=== PATIENT | female | born 1990 | race Caucasian/White ===

== ENCOUNTER 2022-07-09 15:45 | Inpatient (IN) | payer MEDICAID, OTHER ==
--- NOTE | 2022-07-09 12:24 | P.HPOB ---
History of Present Illness H&P Date: 07/09/22 Chief Complaint: Induction of labor secondary to gestational diabetes This patient is a pleasant 32-year-old 3 para 2 female estimated date of confinement 07/16/2022 estimated gestational age 39 and one sevenths weeks who presents to labor and delivery for two-stage induction of labor secondary to gestational diabetes at term. Patient's care is such that she transferred to ut at [address] Dobbs. Patient had not had any glucose testing done and we did do a due Glucola which was abnormal and her 3 hour GTT was abnormal as well. Patient subsequently has been seeing Dr. Borja and has had regular testing. Patient now presents for delivery. Review of Systems Genitourinary: Reports Menstruation: Reports amenorrhea Past Medical History Past Medical History: No Reported History Additional Past Medical History / Comment(s): Patient's had 2 previous vaginal deliveries 7 lbs. 14 oz. and 9 lbs. 5 oz. Past Surgical History: Adenoidectomy Past Anesthesia/Blood Transfusion Reactions: No Reported Reaction Past Psychological History: Anxiety Smoking Status: Never smoker Past Alcohol Use History: None Reported Past Drug Use History: None Reported Medications and Allergies Allergies Allergy/AdvReac Type Severity Reaction Status Date / Time No Known Allergies Allergy Verified 07/09/22 12:22 Exam - OBG Physical Exam Abdomen: bowel sounds normal, no diffuse tenderness, no bruit present, no guarding noted, no hepatomegaly, no splenomegaly, no mass Vulva: both: normal Vagina: normal moisture, no discharge Cervix: no lesion (Cervix at the office was closed.), no discharge Uterus: enlarged (Fundal height is 38 cm) Results blood work shows she is A positive, rubella immune, RPR nonreactive, h epatitis B negative, HIV was nonreactive, group B strep was positive, Glucola was 139 with an abnormal 3 hour gtt. Most recent ultrasound showed baby 5 lbs. 13 oz. which is the 50th percentile at 35 weeks Assessment and Plan Assessment: This is a 32-year-old 3 para 2 female 39 and one sevenths weeks gestation with gestational diabetes and unfavorable cervix. Patient also has a positive group B strep culture. Plan is two-stage induction of labor, antibiotic prophylaxis, and anticipate vaginal delivery. (1) 39 weeks gestation of Status: Acute Code(s): Z3A.39 - 39 WEEKS GESTATION OF SNOMED Code(s): 07865152 (2) Gestational diabetes Status: Acute Code(s): O24.419 - GESTATIONAL DIABETES MELLITUS IN , UNSP CONTROL SNOMED Code(s): 94916475 (3) Encounter for induction of labor Status: Acute Code(s): Z34.90 - ENCNTR FOR SUPRVSN OF NORMAL , UNSP, UNSP TRIMESTER SNOMED Code(s): 723385231 (4) Group B streptococcal carriage complicating Status: Acute Code(s): O99.820 - STREPTOCOCCUS B CARRIER STATE COMPLICATING SNOMED Code(s): 526179062301974
[2022-07-09] MEDS ORDERED: BUTORPHANOL 1 MG/ML 1 ML VIAL IV PRN (15:56)
[2022-07-09] MEDS ORDERED: DINOPROSTONE 10 MG INSERT.ER VAGINAL ONE (16:00)
[2022-07-10] MEDS ORDERED: CARBOPROST TROMETHAMINE 250 MCG/ML 1 ML AMP IM PRN (04:47)
[2022-07-10] MEDS ORDERED: METHYLERGONOVINE 0.2 MG/ML 1 ML AMP IM PRN (04:47)
[2022-07-10] MEDS ORDERED: OXYTOCIN 30 UNITS/500 ML NS 30 UNIT in SALINE 1 500ML.BAG IV SCH ×2 (04:47→17:41)
[2022-07-10] MEDS ORDERED: OXYTOCIN 10 UNIT/ML 1 ML VIAL IM PRN (04:47)
[2022-07-10] MEDS ORDERED: LIDOCAINE 0.5% (PF) 5 MG/ML (50 ML SDV) SQ PRN (04:47)
[2022-07-10] MEDS ORDERED: TERBUTALINE 1 MG/ML VIAL SQ PRN (04:47)
[2022-07-10] MEDS ORDERED: AMPICILLIN 2,000 MG in SODIUM CHLORIDE 0.9% 100 ML IVPB ONE (05:00)
[2022-07-10] MEDS: LACTATED RINGERS 1,000 ML IV SCH ×3 (05:41→15:01)
[2022-07-10 05:52] LABS: Glucose,Whole Blood 93 mg/dL (70-110)
[2022-07-10 06:01] LABS: Basophils % (A) 0 %; Eosinophils # (A) 0.1 k/uL (0-0.7); Eosinophils % (A) 1 %; HCT 41.5 % (34.0-46.0); HGB 13.1 gm/dL (11.4-16.0); Lymphocytes % (A) 25 %; MCH 26.9 pg (25.0-35.0); MCHC 31.6 g/dL (31.0-37.0); MCV 85.2 fL (80.0-100.0); Mean Platelet Volume 8.6; Monocytes # (A) 0.4 k/uL (0-1.0); Monocytes % (A) 5 %; Neutrophils # (A) 5.3 k/uL (1.3-7.7); Neutrophils % (A) 67 %; Platelet Count 172 k/uL (150-450); RBC 4.88 m/uL (3.80-5.40); RDW 13.7 % (11.5-15.5); WBC 7.9 k/uL (3.8-10.6)
[2022-07-10] MEDS: AMPICILLIN 1,000 MG in SODIUM CHLORIDE 0.9% 50 ML IVPB SCH ×2 (09:00→13:19)
[2022-07-10] MEDS ORDERED: fentaNYL (PF) 50 MCG/ML 5 ML AMP ONE (13:49)
[2022-07-10] MEDS ORDERED: ROPIVACAINE 5 MG/ML 20 ML AMPULE ONE (13:49)
[2022-07-10] MEDS ORDERED: SODIUM CHLORIDE 0.9% 100 ML BAG ONE (13:49)
[2022-07-10] MEDS ORDERED: bisacodyL 10 MG SUPP RECTAL PRN (17:41)
[2022-07-10] MEDS ORDERED: diphenhydrAMINE 50 MG/ML 1 ML VIAL IVP PRN (17:41)
[2022-07-10] MEDS ORDERED: LANOLIN CREAM 5 GM TUBE TOPICAL PRN (17:41)
[2022-07-10] MEDS ORDERED: diphenhydrAMINE 25 MG CAP PO PRN (17:41)
[2022-07-10] MEDS ORDERED: SIMETHICONE 80 MG CHEWABLE PO PRN (17:41)
[2022-07-10] MEDS ORDERED: BENZOCAINE/MENTHOL SPRAY 1 GM/SPRAY AEROSOL TOPICAL PRN (17:41)
[2022-07-10] MEDS ORDERED: HYDROCORTISONE 2.5% RECTAL CREAM 30 GM TUBE RECTAL PRN (17:41)
[2022-07-10] MEDS ORDERED: ACETAMINOPHEN TAB 325 MG TAB PO PRN (17:41)
[2022-07-10] MEDS ORDERED: ZOLPIDEM 5 MG TAB PO PRN (17:41)
--- NOTE | 2022-07-10 18:04 | P.PROBDLV ---
Vaginal Delivery Note - . Vaginal Delivery Note: Normal vaginal delivery viable male infant Apgars 9 and 9 delivery time is 1729 hrs. Please see dictated H&P for intimate details of this patient's admission. In brief summary is a pleasant 32-year-old 3 para 2 female 39 and one sevenths weeks gestation admitted to labor and delivery for two-stage induction of labor secondary to gestational diabetes. On admission patient has a Cervidil placed.'s morning she is 1-2 cm dilated and thick but has artificial rupture membranes for clear fluid. Labor progresses slowly but then she gets an epidural progresses much quicker. Patient gets to complete and with 1 effort she delivers infant head over the intact perineum in a controlled fashion. Mouth and nares are bulb suctioned. She continues to push gently and delivers the rest of this 's body without effort. Does have a nuchal cord 1. Is a viable male Apgars are 9 and 9 delivery time was 1729 hrs. After delivery of the is laid in the mother's abdomen. After the cord is then pulsating is doubly clamped and then cut. Appears to be trivascular. Placenta is then spontaneously delivered intact. No laceration and no repairs required. Estimated blood loss is 150 mL. Mother and infant are stable delivery room.
[2022-07-10] MEDS: SENNOSIDES-DOCUSATE SODIUM 1 EACH TAB PO SCH ×2 (18:25→20:04)
[2022-07-10] MEDS: IBUPROFEN 600 MG TAB PO PRN (20:04)
[2022-07-11 07:03] LABS: Basophils % (A) 0 %; Eosinophils # (A) 0.1 k/uL (0-0.7); Eosinophils % (A) 1 %; HCT 37.8 % (34.0-46.0); HGB 11.9 gm/dL (11.4-16.0); Lymphocytes # (A) 1.6 k/uL (1.0-4.8); Lymphocytes % (A) 18 %; MCH 27.3 pg (25.0-35.0); MCHC 31.5 g/dL (31.0-37.0); MCV 86.4 fL (80.0-100.0); Mean Platelet Volume 8.7; Monocytes # (A) 0.5 k/uL (0-1.0); Monocytes % (A) 6 %; Neutrophils # (A) 6.4 k/uL (1.3-7.7); Neutrophils % (A) 73 %; Platelet Count 150 k/uL (150-450); RBC 4.37 m/uL (3.80-5.40); RDW 13.9 % (11.5-15.5); WBC 8.7 k/uL (3.8-10.6)
--- NOTE | 2022-07-11 07:16 | P.PNOBGVD ---
Subjective - Subjective Patient reports: Reports appetite normal, Reports voiding normally, Reports pain well controlled, Reports ambulating normally : doing well Objective - Latest Vital Signs Latest vital signs: Vital Signs Temp Pulse Resp BP Pulse Ox 07/11/22 04:00 98.3 F 97 17 100/58 96 07/10/22 23:44 98.1 F 103 H 19 94/56 07/10/22 23:43 99 16 07/10/22 19:44 97.8 F 99 16 138/63 07/10/22 19:14 98.0 F 104 H 17 149/62 07/10/22 18:44 95 16 112/60 07/10/22 18:29 97.6 F 103 H 16 112/67 97 07/10/22 18:14 114 H 16 125/66 07/10/22 17:59 103 H 16 123/62 07/10/22 17:44 98.4 F 114 H 16 131/72 Intake and Output 07/10/22 07/11/22 07/11/22 22:59 06:59 14:59 Intake Total 681.833 Output Total 725 300 Balance -43.167 -300 Intake: Intake, IV Titration 201.833 Amount Oxytocin 30 Units/500 ml 201.833 Ns 30 unit In Saline 1 500ml.bag @ Per Protocol IV .Q0M [facility] Rx#:[id number] Oral 480 Output: Urine 300 Estimated Blood Loss 300 Output, Quantitative 425 Blood Loss Other: # Voids 2 - Exam Lungs: bilateral: normal Chest: Normal S1, Normal S2 Extremities: Present: normal Abdomen: Present: normal appearance, soft Uterus: Present: normal, firm Assessment and Plan Assessment: day #1. Patient is resting without complaints and wishes to go home. Vital signs are stable she's afebrile. Uterus is firm nontender and she is having normal lochia. Impression this is a normal course. Plan is to continue routine care and discharge home later today. (1) 39 weeks gestation of Current Visit: No Status: Acute Code(s): Z3A.39 - 39 WEEKS GESTATION OF SNOMED Code(s): 47668786 (2) Gestational diabetes Current Visit: No Status: Acute Code(s): O24.419 - GESTATIONAL DIABETES MELLITUS IN , UNSP CONTROL SNOMED Code(s): 63925236 (3) Encounter for induction of labor Current Visit: No Status: Acute Code(s): Z34.90 - ENCNTR FOR SUPRVSN OF NORMAL , UNSP, UNSP TRIMESTER SNOMED Code(s): 152551997 (4) Group B streptococcal carriage complicating Current Visit: No Status: Acute Code(s): O99.820 - STREPTOCOCCUS B CARRIER STATE COMPLICATING SNOMED Code(s): 299443006503931
--- NOTE | 2022-07-11 07:21 | P.DS ---
Providers Date of admission: 07/09/22 15:45 Expected date of discharge: 07/11/22 Attending physician: Damien Mccain Primary care physician: Stated None - Discharge Diagnosis(es) (1) 39 weeks gestation of Current Visit: No Status: Acute (2) Gestational diabetes Current Visit: No Status: Acute (3) Encounter for induction of labor Current Visit: No Status: Acute (4) Group B streptococcal carriage complicating Current Visit: No Status: Acute Hospital Course: Please see dictated H&P for intimate details of this patient's admission. Brief summary this pleasant 32-year-old 3 para 2 female 39 weeks gestation admitted to labor and delivery for induction of labor secondary to gestational diabetes. Patient is admitted she is uncomplicated induction of labor was on have a vaginal delivery viable male infant. Please see dictated delivery note. day #1 patient is without complaints and wishes to go home. Conrad aden's felt be stable for discharge home follow up with me in 6 weeks. Procedures: Two-stage induction of labor and normal vaginal delivery Patient Condition at Discharge: Good Plan - Discharge Summary Discharge Rx Participant: Yes New Discharge Prescriptions: New Ibuprofen [Motrin] 600 mg PO Q6HR PRN #30 tab PRN Reason: Mild Pain (Scale 1 To 3) No Action Unf-Whyo-Niasy Acid [-U Capsule (formulary)] 1 cap PO DAILY Discharge Medication List Lbb-Hess-Xkcuc Acid [-U Capsule (formulary)] 1 cap PO DAILY 07/09/22 [History] Ibuprofen [Motrin] 600 mg PO Q6HR PRN #30 tab 07/11/22 [Rx] Follow up Appointment(s)/Referral(s): Damien Mccain MD [STAFF PHYSICIAN] - 08/28/22 9:30 am Patient Instructions/Handouts: Vaginal Delivery (DC) Activity/Diet/Wound Care/Special Instructions: No intercourse or anything per vagina for 6 weeks. Please call if any fever, chills, excessive vaginal bleeding, and/or abdominal pain. Discharge Disposition: HOME SELF-CARE
[2022-07-11] MEDS: IBUPROFEN 600 MG TAB PO PRN (08:36)
[2022-07-11] MEDS: SENNOSIDES-DOCUSATE SODIUM 1 EACH TAB PO SCH (08:37)
[2022-07-11] MEDS: AMPICILLIN 1,000 MG in SODIUM CHLORIDE 0.9% 50 ML IVPB SCH (14:46)
[2022-07-11 17:12] VITALS: TEMP 97.9
[2022-07-11 18:56] VITALS: BP 101/62; PULSE 80; RESP 18
== END 2022-07-11 18:45 | disposition home or self-care (01) | DRG 807 ==
LOC: 4FBP 15:45
PROVIDERS: ADMIT Obstetrics & Gynecology; ATTEND Obstetrics & Gynecology
PROC: 10E0XZZ Delivery of Products of Conception, External Approach (ICD-10-PCS; principal; 2022-07-10)
PROC: 10907ZC Drainage of Amniotic Fluid, Therapeutic from Products of Conception, Via Natural or Artificial Opening (ICD-10-PCS; 2022-07-10)
PROC: 3E0P7VZ Introduction of Hormone into Female Reproductive, Via Natural or Artificial Opening (ICD-10-PCS; 2022-07-10)
PROC: 4A0HXCZ Measurement of Products of Conception, Cardiac Rate, External Approach (ICD-10-PCS; 2022-07-10)
DX: O24.429 Gestational diabetes mellitus in childbirth, unspecified control (principal); Z37.0 Single live birth; O34.43 Maternal care for other abnormalities of cervix, third trimester; F41.9 Anxiety disorder, unspecified; O69.81X0 Labor and delivery complicated by cord around neck, without compression, not applicable or unspecified; O99.344 Other mental disorders complicating childbirth; O99.824 Streptococcus B carrier state complicating childbirth; Z3A.39 39 weeks gestation of pregnancy
CPT/HCPCS: 83036; 85025; 86850; 86900; 86901; 88307